=== PATIENT | female | born 2000 | race Caucasian/White ===

== ENCOUNTER 2019-07-31 22:40 | Emergency (ER) | payer BC ==
[~2019-07-31] VITALS: Ht 160 cm; Wt 77.6 kg
[2019-08-01 01:26] VITALS: BP 98/68
== END 2019-08-01 01:26 | disposition home or self-care (01) ==
LOC: ED 22:40
DX: R51 Headache (principal); R20.0 Anesthesia of skin; R68.84 Jaw pain